=== PATIENT | female | born 1970 | race Caucasian/White ===

== ENCOUNTER 2025-07-07 11:01 | Outpatient (AMB) | payer BC, SELFPAY ==
--- NOTE | 2025-07-07 11:07 | MHC.PC.OV ---
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 Intake Note: patient here for new patient visit Music Manager Required: No Is last menstrual period known: No Post menopausal: No Patient : No Allergies No Known Allergies Allergy (Verified 07/07/25 11:20) Medication List - Last Reconciled 07/07/25 by Chaya Hernandez CNP No Known Home Meds Tobacco use date assessed: 07/07/25 Dental Screening Dental Screen Date: 07/07/25 Did you have a dental visit in the last 12 months?: Yes Did you have a dental problem in the last 6 months where you did not have access to dental care?: No Was dental information given to patient?: Patient has dentist HPI HPI Comments History of Present Illness Details 55-year-old female presents to [facility]. Not on prescription medications. Prior PCP? - Dr Zepeda, [facility] Last office visit/CPE/labs - About a year and half ago Acute issue(s) - None Past Medical History - Myopia (wears glasses) Surgical History - None Family History - Dad (): Colon and liver cancer - Mom: Alcohol abuse Social History - Former smoker, smoked x 10 yrs and quit in the . Does not vape. 1 glass of wine occasionally. Denies recreational drug use - Has been making healthy dietary choices. Exercises routinely. Generally sleep well Health maintenance - Last eye exam within the past year with [facility]. Encouraged to sign a release for her PCP to obtain her ophthalmology record - Last dental visit was 5 days ago - Last tetanus vaccine unknown. Will request tetanus vaccine status from [facility] - Has not been vaccinated for the flu this season; declines vaccination - She has never been vaccinated for shingles. Instructed on the importance of vaccinations and encouraged to get vaccinated for shingles. Declines shingles vaccination - Last pap smear test was in 07/26/2023 by [facility]: Negative - Last mammogram was in 08/25/2024 with [facility]: No mammographic evidence of malignancy - Last colonoscopy was several years ago: Normal. She had colonoscopy every 5 years with normal results. She has been performing Cologuard test regularly with last test about 1.5 year ago from PCP: normal. She will consider colonoscopy when she turns 58. 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 1. Little interest or pleasure in doing things: not at all 2. Feeling down, depressed, or hopeless: not at all 3. Trouble falling or staying asleep, or sleeping too much: not at all 4. Feeling tired or having little energy: not at all 5. Poor appetite or overeating: not at all 6. Feeling bad about yourself - or that you are a failure or have let yourself or your family down: not at all 7. Trouble concentrating on things, such as reading the newspaper or watching television: not at all 8. Moving or speaking so slowly that other people could have noticed. Or the opposite - being so fidgety or restless that you have been moving around a lot more than usual: not at all 9. Thoughts that you would be better off or of hurting yourself in some way: not at all Total score: 0 Depression Screening Interpretation: Negative Depression Screening Done: Yes 84323 - PHQ-9 Billing: Yes Source: Developed by Drs. Placdio Hood, Anna Mejias, Nikunj Momin and colleagues, with an educational sheldon from [employer]. Thrive Questionnaire Date Thrive assessed: 07/07/25 I am a: Patient What is your living situation today?: I have a steady place to live Within the past 12 months, did the food you bought not last and you didn't have the money to get more?: Never true Within the past 12 months, did you worry whether your food would run out before you got money to buy more?: Often true Do you have trouble paying for medicines?: No Do you have trouble getting transportation to medical appointments?: No Do you have trouble paying your heating and electricity bill?: No Do you have trouble taking care of your child, family member or friend?: No Do you have trouble with day-to-day activities such as bathing, preparing meals, shopping, managing finances, etc.?: No Are you currently unemployed and looking for a job?: No Are you interested in more education?: No Please select the resources that you would like help with: None Currently or been in a relationship where the following occur: No concerns reported THRIVE Score: 1 AUDIT C Alcohol Use Questionnaire (AUDIT-C) 1. How often do you have a drink containing alcohol?: Monthly or less 2. How many drinks containing alcohol do you have on a typical day when you are drinking?: 1 or 2 3. How often do you have six or more drinks on one occasion?: Never Total Score: 1 Score Reviewed/Action Taken: Yes CATHY-7 AMB Questionnaire CATHY-7 Date CATHY - 7 assessed: 07/07/25 Feeling nervous, anxious, or on edge: 0 = Not at all Not being able to stop or control worryin = Not at all Worrying too much about different things: 0 = Not at all Trouble relaxin = Not at all Being so restless that it is hard to sit still: 0 = Not at all Becoming easily annoyed or irritable: 0 = Not at all Feeling afraid as if something awful might happen: 0 = Not at all Total CATHY-7 score (0-4 normal; 5-9 mild; 10-14 moderate; 15-21 severe): 0 Source: Developed by Drs. Placido Hood, Anna Mejias, Nikunj Momin and colleagues, with an educational sheldon from [employer]. CATHY-7 Assessment Billing CATHY-7 Assessment Tool: CATHY-7 Assessment 63247 Review of Systems Const Details: Denies chills, Denies fatigue, Denies fever(s), Denies headache(s) and Denies weakness HEENT Denies change in vision, Denies dizziness, Denies headache(s), Denies hearing loss, Denies nasal congestion, Denies sinus pain, Denies sinus pressure and Denies sore throat Card Denies chest pain, Denies lightheadedness, Denies dyspnea and Denies other (palpitations) Resp Denies cough, Denies dyspnea and Denies wheezing GI Denies abdominal pain, Denies melena, Denies hematochezia, Denies change in bowel habits, Denies dyspepsia and Denies nausea Denies hematuria and Denies dysuria Musc Denies abnormal gait, Denies myalgias, Denies arthralgias, Denies numbness and Denies tingling Skin/Breast Denies rash, Denies unusual bruising and Denies wounds Neuro Denies abnormal gait, Denies dizziness, Denies headache(s), Denies memory loss, Denies numbness, Denies Sensory deficit (Neuro), Denies tingling and Denies weakness Psych Denies anxiety, Denies depression and Denies memory loss Endo Denies cold intolerance, Denies fatigue, Denies heat intolerance, Denies polydipsia and Denies polyuria Silviano/Lymph Denies easy bleeding and Denies easy bruising Aller/Immun Denies wheezing Physical exam (Primary Care) Vital Signs: Last Vital Signs Temp 98.0 F 07/07/25 11:13 Pulse 60 07/07/25 11:13 Resp 16 07/07/25 11:13 BP 108/63 07/07/25 11:13 Pulse Ox 97 07/07/25 11:13 Oxygen Delivery Method Room Air 07/07/25 11:13 BMI result Body Mass Index 21.3 Tobacco/Smoking Status: Tobacco use Status Tobacco use date assessed 07/07/25 07/07/25 11:13 Patient Tobacco Use Status Never used Tobacco 07/07/25 11:13 e-Cigarette/Vaping Use Never Used 07/07/25 11:13 PHQ-9: PHQ-9 Score PHQ-9: Total score 0 07/07/25 11:10 Depression Screening Interpretation: Negative Thrive Assessment: Date of Thrive Assessment Date Thrive assessed 07/07/25 07/07/25 11:10 Currently or been in a relationship where the following occur: No concerns reported Const Other: General: no acute distress, well developed, alert and awake Nutritional Appearance: well nourished Orientation/consciousness: patient oriented x3 [facility] Head: Yes normocephalic and Yes atraumatic Ears: hearing grossly normal bilaterally and TM's normal bilaterally General nose exam: Normal external nose present and Normal nares present Mouth: Normal oral and palatal mucosa present and moist mucous membranes Teeth and gingiva: dentition normal Throat: Yes oropharynx normal Eyes Pupils: Equal, round and reactive pupils present and Pupil accommodation reflex normal EOM: EOMs intact bilaterally Neck Neck: Yes normal visual inspection, Yes no lymphadenopathy and Yes trachea midline Thyroid: Thyroid normal Carotids: no bruits Lymphatic: no lymphadenopathy noted Chest Chest palpation & inspection: normal inspection of the chest Resp Effort & Inspection: normal respiratory effort Auscultation: clear to auscultation bilaterally Cardio Rate: regular rate Rhythm: regular rhythm Heart sounds: S1 normal heart sound present, S2 normal heart sound present, no gallops, no murmurs and no rubs Bruits: no abdominal aortic bruits and no carotid bruits GI Palpation (GI): No Abdominal aortic bruit present, Soft to palpation, nontender, No hepatosplenomegaly present and No Rebound tenderness present Auscultation: normal bowel sounds General: Yes no CVA tenderness Back/Spine/Pelvis Back: no CVA tenderness Cervical Spine: cervical ROM normal and No Cervical spine tenderness Thoracic/Lumbar Spine: thoraco-lumbar ROM normal, No pain with thoraco-lumbar ROM, No thoracic spinal tenderness and No lumbar spinal tenderness Skin General: warm and dry. Normal skin color. Normal skin turgor Lesions: no lesions Rashes: no rashes Trauma: no lacerations or abrasions Wounds: no wounds Nails: normal Neuro General: patient oriented x3, gait normal and CN's II-XI intact bilaterally Cranial nerves: Yes Equal, round and reactive pupils present Cognition (Neuro): normal cognition Gait exam (Neuro): Normal gait present Motor exam (neuro): 5/5 motor strength present throughout Sensory Exam: No Sensory deficit (Neuro) Deep tendon reflexes (DTR's): Right patellar reflex intensity grade: 2+ and Left patellar reflex intensity grade: 2+ Extrem General: Yes normal to inspection, No edema and No calf tenderness Psych Appearance: grossly normal Affect: normal affect Attitude: cooperative Thought process: Normal thought process present Coding Level of Care Code New Pt Prev Care 40-64y(79791) Diagnoses Normal physical examination, routine Z00.00 Laboratory tests ordered as part of a complete physical exam (CPE) Z00.00 Additional Codes CATHY-7 Assessment Billing - CATHY-7 Assessment Tool: CATHY-7 Assessment 43409 ([id number]) PHQ-9 - 26416 - PHQ-9 Billing: Yes ([id number]) Assessment & Plan Assessment & Plan (1) Normal physical examination, routine: Code(s): Z00.00 - Encounter for general adult medical examination without abnormal findings Category: Medical Plan: No significant functional limitation noted. Healthy diet and routine exercise encouraged. Purple lab work and follow-up for telehealth visit for labs review. Return sooner with symptoms or concerns. Verbalized understanding and agreed with plan. (2) Laboratory tests ordered as part of a complete physical exam (CPE): Code(s): Z00.00 - Encounter for general adult medical examination without abnormal findings Category: Medical Plan: Fasting labs ordered as part of a complete physical exam. Advised to fast for at least 10 hours before getting labs drawn. May drink water Verbalized understanding and agreed with treatment plan. Orders: Orders Complete Blood Count Auto Diff Today Z00.00 - Encounter for general adult medical examination without abnormal findings Microalbumin, Random (w Creat) Today Z00.00 - Encounter for general adult medical examination without abnormal findings TSH reflex Free T4 Today Z00.00 - Encounter for general adult medical examination without abnormal findings Vitamin D 25-OH Total Today Z00.00 - Encounter for general adult medical examination without abnormal findings Comprehensive [place]. Panel Fast Today Z00.00 - Encounter for general adult medical examination without abnormal findings Lipid Panel Today Z00.00 - Encounter for general adult medical examination without abnormal findings UA CC w/rflx Micro + Cult Today Z00.00 - Encounter for general adult medical examination without abnormal findings
[2025-07-07 11:13] VITALS: BP 108/63; PULSE 60; RESP 16; TEMP 36.7; O2SAT 97; BMI 21.3
== END 2025-07-07 11:37 | disposition home or self-care (01) ==
LOC: HO.HMCFM 11:02
PROVIDERS: PCP Nurse Practitioner Family; Visit Provider Nurse Practitioner Family
DX: Z00.00 Encounter for general adult medical examination without abnormal findings (principal)

== ENCOUNTER → 2025-07-07 11:01 | Outpatient (BNVA) | payer BC, SELFPAY | PROVIDERS: PCP Nurse Practitioner Family; Visit Provider Nurse Practitioner Family | DX: Z00.00 Encounter for general adult medical examination without abnormal findings (principal) | CPT/HCPCS: 96127 ==

== ENCOUNTER 2025-07-14 07:37 | Outpatient (REF) | payer BC, SELFPAY ==
[2025-07-14 11:12] LABS: MANUAL DIFF FLAG NO
[2025-07-14 11:22] LABS: Hematocrit 40.4 % (37.0-47.0); Hemoglobin 13.4 g/dl (12.0-16.0); Imm Gran Abs Auto 0.01 X10*3/uL (0.00-0.03); Imm Gran Pct Auto 0.2 % (0.0-0.4); Lymphocytes Absolute Auto 1.3 X10*3/uL (1.2-4.9); Mean Corpuscular HGB Conc 33.2 g/dl (31.0-35.0); Mean Corpuscular Hemoglobin 30.0 pg (27.0-33.0); Mean Corpuscular Volume 90.6 fL (80.0-98.0); NRBC Abs Auto 0.000 X10*3/uL (0.0-0.012); NRBC Pct Auto 0.0 /100WBC (0.0-0.2); Platelet Count 238 X10*3/uL (160-400); Red Blood Count 4.46 X10*6/uL (4.20-5.50); White Blood Count 5.0 X10*3/uL (4.8-10.8)
[2025-07-14 11:26] LABS: Appearance Urine Clear; Glucose Urine UA Negative (Negative); PH 6.5 (5.0-9.0); Specific Gravity - Urine <= 1.005 (1.005-1.025)
[2025-07-14 12:16] LABS: Alanine Aminotransferase 23 U/L (0-31); Albumin Level 4.6 g/dL (3.5-5.0); Alkaline Phosphatase 66 U/L (39-117); Anion Gap 13 (12-20); Aspartate Amino Transferase 27 U/L (5-31); Blood Urea Nitrogen 13 mg/dL (9-16); Calcium 8.8 mg/dL (8.4-10.2); Carbon Dioxide 25 mmol/L (22-29); Chloride 103 mmol/L (96-108); Cholesterol 204 mg/dL (<200); Estimated Glomerular Filt Rate > 60; HDL Cholesterol 75 mg/dL (>40); Potassium 3.6 mmol/L (3.3-5.1); Sodium 137 mmol/L (135-145); Total Protein 6.6 g/dL (6.5-8.0); Triglycerides 75 mg/dL (<150)
== END 2025-07-14 07:38 | disposition home or self-care (01) ==
LOC: HO.WFDLDS 07:37
PROVIDERS: Visit Provider Nurse Practitioner Family
DX: Z00.00 Encounter for general adult medical examination without abnormal findings (principal); Z13.6 Encounter for screening for cardiovascular disorders; Z13.21 Encounter for screening for nutritional disorder; Z13.29 Encounter for screening for other suspected endocrine disorder
CPT/HCPCS: 36415; 80053; 80061; 81003; 82306; 82570; 84443; 85025

== ENCOUNTER 2025-07-28 15:15 | Outpatient (AMB) | payer BC, SELFPAY ==
--- NOTE | 2025-07-28 14:33 | MHC.PC.OV ---
Intake Visit Reasons: Tele 2-4 wks labs review Intake Note: patient here for 2-4 wks Telehealth follow up on lab review Manager Contact Required: No Is last menstrual period known: No Post menopausal: No Patient : No Allergies No Known Allergies Allergy (Verified 07/28/25 15:12) Tobacco use date assessed: 07/28/25 Dental Screening Dental Screen Date: 07/28/25 Did you have a dental visit in the last 12 months?: Yes Did you have a dental problem in the last 6 months where you did not have access to dental care?: No Was dental information given to patient?: Patient has dentist HPI HPI Comments History of Present Illness Details 55-year-old female presents for a telehealth visit for review of recent lab results. No acute symptoms at this time. 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 Current occupational exposures/hazards: No Cognitive needs: No Hearing needs: No Vision needs: Yes Questionnaire Thrive Questionnaire Date Thrive assessed: 06/30/25 I am a: Patient What is your living situation today?: I have a steady place to live Within the past 12 months, did the food you bought not last and you didn't have the money to get more?: Never true Within the past 12 months, did you worry whether your food would run out before you got money to buy more?: Often true Do you have trouble paying for medicines?: No Do you have trouble getting transportation to medical appointments?: No Do you have trouble paying your heating and electricity bill?: No Do you have trouble taking care of your child, family member or friend?: No Do you have trouble with day-to-day activities such as bathing, preparing meals, shopping, managing finances, etc.?: No Are you currently unemployed and looking for a job?: No Are you interested in more education?: No Please select the resources that you would like help with: None Currently or been in a relationship where the following occur: No concerns reported THRIVE Score: 1 CATHY-7 AMB Questionnaire CATHY-7 Date CATHY - 7 assessed: 07/07/25 Source: Developed by Drs. Placido Hood, Anna Mejias, Nikunj Momin and colleagues, with an educational sheldon from [employer]. Review of Systems Const Details: Denies chills, Denies fatigue, Denies fever(s), Denies headache(s) and Denies weakness Cardiac Denies chest pain, Denies claudication, Denies leg edema, Denies lightheadedness, Denies palpitations, Denies dyspnea, Denies dyspnea on exertion, Denies orthopnea and Denies other (Loss of consciousness) Resp Denies cough, Denies excessive phlegm production, Denies dyspnea, Denies dyspnea on exertion, Denies snoring and Denies wheezing Physical exam (Primary Care) Tobacco/Smoking Status: Tobacco use Status Tobacco use date assessed 07/07/25 07/28/25 14:38 Patient Tobacco Use Status Never used Tobacco 07/28/25 14:38 e-Cigarette/Vaping Use Never Used 07/28/25 14:38 Thrive Assessment: Date of Thrive Assessment Date Thrive assessed 06/30/25 07/28/25 14:38 Currently or been in a relationship where the following occur: No concerns reported Const Other: Patient is alert and oriented x3 Telehealth Telehealth Telehealth Platform: Telephone Location of provider rendering services: practice address Location of patient: address on file Patient Identification confirmed using: Name, : Yes Telehealth method: voice only Patient verbally consented to treatment: Yes Patient verbally consented to billing insurance company: Yes Patient informed of any privacy concerns related to visit: Yes Coding Level of Care Code Tele Est Pt Level 3 (68285) Diagnoses Hypercholesterolemia E78.00 Vitamin D deficiency E55.9 Hyperbilirubinemia E80.6 Time Spent (min) 15 Assessment & Plan Assessment & Plan (1) Hypercholesterolemia: Code(s): E78.00 - Pure hypercholesterolemia, unspecified Category: Medical Plan: Recent total cholesterol and LDL levels are slightly elevated, 204 and 114 respectively, triglycerides and HDL are normal. She magda Advised to limit foods high in saturated fat and avoid foods high in trans fat. Routine exercise encouraged. She does not want regular monitoring of her lipid panel as it is only slightly above normal. Encouraged to follow-up for an extended physical exam after 07/07/2026. Return sooner with symptoms or concerns. Verbalized understanding and agreed with the plan. (2) Vitamin D deficiency: Code(s): E55.9 - Vitamin D deficiency, unspecified Category: Medical Plan: Recent vitamin-D level is slightly low, 29.1. She notes that she started taking vitamin D3 25 mcg daily; encouraged to continue She does not want regular monitoring of her vitamin-D level. Therefore, vitamin-D level will be monitored periodically. Verbalized understanding and agreed with the plan. (3) Hyperbilirubinemia: Code(s): E80.6 - Other disorders of bilirubin metabolism Category: Medical Plan: Recent bilirubin level is slightly elevated, 1.4. Liver enzymes are normal. Gilbert syndrome is possible. Will monitor bilirubin level periodically. Verbalized understanding and agreed with the plan.
== END 2025-07-28 15:57 | disposition home or self-care (01) ==
LOC: HO.HMCFM 15:15
PROVIDERS: PCP Nurse Practitioner Family; Visit Provider Nurse Practitioner Family
DX: E78.00 Pure hypercholesterolemia, unspecified (principal); E55.9 Vitamin D deficiency, unspecified; E80.6 Other disorders of bilirubin metabolism